=== PATIENT | female | born 1960 | race Caucasian/White ===

== ENCOUNTER → 2023-09-23 13:53 | Outpatient (REF) | payer OTHER, SELFPAY | LOC: HWWDC 13:53 | PROVIDERS: ATTENDING PHYSICIAN Family Medicine | DX: M85.89 Other specified disorders of bone density and structure, multiple sites (principal); Z12.31 Encounter for screening mammogram for malignant neoplasm of breast | CPT/HCPCS: 77063; 77067; 77080 ==

== ENCOUNTER → 2023-11-11 12:55 | Outpatient (REF) | payer OTHER, SELFPAY | LOC: HWRAD 12:55 | PROVIDERS: ATTENDING PHYSICIAN Family Medicine | DX: M25.552 Pain in left hip (principal) | CPT/HCPCS: 73502 ==

== ENCOUNTER 2023-12-24 07:55 | Outpatient (RCR) | payer OTHER, SELFPAY | END 2023-12-24 23:59 | disposition home or self-care (01) | LOC: RPT 07:55 | PROVIDERS: ATTENDING PHYSICIAN Family Medicine | DX: S76.012A Strain of muscle, fascia and tendon of left hip, initial encounter (principal); Z73.6 Limitation of activities due to disability | CPT/HCPCS: 97010; 97110; 97140; 97161; 97530 ==

== ENCOUNTER → 2024-11-07 13:01 | Outpatient (REF) | payer OTHER, SELFPAY | LOC: HWWDC 13:01 | PROVIDERS: ATTENDING PHYSICIAN Obstetrics & Gynecology Gynecology; FAMILY PHYSICIAN Family Medicine | DX: Z12.31 Encounter for screening mammogram for malignant neoplasm of breast (principal) | CPT/HCPCS: 77063; 77067 ==

== ENCOUNTER 2024-11-22 08:18 | Outpatient (RCR) | payer OTHER, SELFPAY | END 2024-11-22 23:59 | disposition home or self-care (01) | LOC: RPT 08:18 | PROVIDERS: ATTENDING PHYSICIAN Family Medicine | DX: M25.552 Pain in left hip (principal); Z73.6 Limitation of activities due to disability; R26.2 Difficulty in walking, not elsewhere classified; M62.81 Muscle weakness (generalized); R26.89 Other abnormalities of gait and mobility; M25.562 Pain in left knee | CPT/HCPCS: 97110; 97162 ==

== ENCOUNTER 2024-12-14 07:05 | Outpatient (RCR) | payer OTHER, SELFPAY | END 2024-12-14 23:59 | disposition home or self-care (01) | LOC: RPT 07:05 | PROVIDERS: ATTENDING PHYSICIAN Family Medicine | DX: M25.552 Pain in left hip (principal); Z73.6 Limitation of activities due to disability; R26.2 Difficulty in walking, not elsewhere classified; M62.81 Muscle weakness (generalized); R26.89 Other abnormalities of gait and mobility; M25.562 Pain in left knee | CPT/HCPCS: 97110; 97112 ==

== ENCOUNTER 2025-01-09 09:12 | Outpatient (RCR) | payer OTHER, SELFPAY | END 2025-01-09 23:59 | disposition home or self-care (01) | LOC: RPT 09:12 | PROVIDERS: ATTENDING PHYSICIAN Family Medicine | DX: M25.552 Pain in left hip (principal); Z73.6 Limitation of activities due to disability; R26.2 Difficulty in walking, not elsewhere classified; M62.81 Muscle weakness (generalized); R26.89 Other abnormalities of gait and mobility; M25.562 Pain in left knee | CPT/HCPCS: 97110 ==